=== PATIENT | male | born 1980 | race Caucasian/White ===

== ENCOUNTER 2020-10-31 18:03 | Emergency (ER) | payer OTHER ==
[~2020-10-31] VITALS: Ht 165.1 cm; Wt 60.8 kg
--- NOTE | 2020-10-31 18:15 | NUR ---
ASSUME PT CARE. PT APPEARS UNCOMFORTABLE W/ BLADDER PAIN. UNABLE TO URINATE SINCE THIS MORNING S/P OUTPATIENT PROCEDURE EARLIER. 08/25 PAIN. AWAITING MD CISNEROS.
--- NOTE | 2020-10-31 18:33 | NUR ---
DR MUHAMMAD AT BEDSIDE FOR EVAL.
[2020-10-31] MEDS ORDERED: LIDOCAINE 2% JEL UROJET 10 ML MM ONE ×2 (18:38→19:00)
--- NOTE | 2020-10-31 19:20 | NUR ---
REPORT TO CHRISTOFER GALLEGO FOR [facility].
--- NOTE | 2020-10-31 20:15 | NUR ---
Patient discharged to home in stable condition. Written and verbal after care instructions given. Patient verbalizes understanding of instruction. Pt stated he would like to keep the catheter. Pt instructed how to pull out the catheter at home. VSS. Picked up by family.
[2020-10-31 20:54] VITALS: BP 137/68
== END 2020-10-31 20:54 | disposition home or self-care (01) ==
LOC: ER 18:08
DX: R33.9 Retention of urine, unspecified (principal)
CPT/HCPCS: 51702; 99284; J3490